=== PATIENT | male | born 1975 | race Caucasian/White ===

== ENCOUNTER 2016-05-03 10:33 | Emergency (ER) | payer OTHER ==
[~2016-05-03] VITALS: Ht 182.9 cm; Wt 90.7 kg
[2016-05-03] MEDS ORDERED: VYVANSE60 M1 PO (12:47)
[2016-05-03 12:52] VITALS: BP 145/78
[2016-05-03] MEDS ORDERED: KEFLEX500 M1 PO (12:56)
--- NOTE | 2016-05-03 12:57 | ED HEAD/FACIAL INJ COMPLAINT ---
History of Present Illness General Chief Complaint: Laceration Procedure Stated Complaint: FALL LIP LAC Source: patient Exam Limitations: no limitations Vital Signs & Intake/Output Vital Signs & Intake/Output Vital Signs Date Time Temp Pulse Resp B/P Pulse O2 O2 Flow FiO2 Ox Delivery Rate 05/03 1252 98.6 88 18 145/78 98 Room Air 05/03 1246 Room Air 05/03 1107 98.4 84 18 133/80 100 Room Air Allergies Coded Allergies: No Known Drug Allergies (05/03/16) Uncoded Allergies: Allergy Other N Med Allergies N Reconcile Medications Cephalexin (Keflex) 500 MG CAPSULE 1 CAP PO BID infection Lisdexamfetamine Dimesylate (Vyvanse) 60 MG CAPSULE 1 CAP PO QAM ADHD ( Reported) Triage Note: FELL WHILE WALKING DOG, HIT FACE ON SIDEWALK, HAS 3-4 CM LACERATION TO TOP OF LIP. NO LOC. TETANUS UP TO DAIE. Triage Nurses Notes Reviewed? yes HPI: 41-year-old male fell forward out walking his dog after his dog pulled him, thought to the sidewalk and struck his face and left side of his face, has abrasions to the left side of the face, mild tenderness and pain to the left lateral cheek region and a laceration noted to the upper lip area. There is no loss of consciousness, no nausea vomiting or confusion no headaches. No treatment thus far. Mild active bleeding was controlled with direct pressure. Injury occurred prior to arrival. (MICHAEL RAMON) Past History Travel History Traveled to [place] past 21 day No Medical History Any Pertinent Medical History? see below for history Neurological: NONE EENT: NONE Cardiovascular: NONE Respiratory: NONE Gastrointestinal: NONE Hepatic: NONE Renal: NONE Musculoskeletal: NONE Psychiatric: NONE, ADHD Cancer(s): NONE Tetanus Status: up to date Surgical History Surgical History: non-contributory Psychosocial History What is your primary language Polish Tobacco Use: Current Daily Use Daily Tobacco Use Amount/Type: => 5 Cigarettes daily ETOH Use: occasional use Family History Hx Contributory? No (MICHAEL RAMON) Review of Systems Review of Systems Constitutional: Reports: see HPI. EENTM: Reports: no symptoms. Respiratory: Reports: no symptoms. Cardiovascular: Reports: no symptoms. GI: Reports: no symptoms. Genitourinary: Reports: no symptoms. Musculoskeletal: Reports: no symptoms. Skin: Reports: no symptoms. Neurological/Psychological: Reports: no symptoms. Hematologic/Endocrine: Reports: no symptoms. Immunologic/Allergic: Reports: no symptoms. All Other Systems: Reviewed and Negative (MICHAEL RAMON) Physical Exam Physical Exam General Appearance: well developed/nourished, mild distress Eyes: Bilateral: PERRL, EOMI. Ears, Nose, Throat: normal pharynx, normal ENT inspection, hearing grossly normal Neck: normal inspection, supple Respiratory: normal breath sounds Cardiovascular: regular rate/rhythm Gastrointestinal: soft, non-tender Back: normal inspection Extremities: normal inspection, normal range of motion, no edema Psychiatric: awake, alert, oriented x 3 Cranial Nerves: normal hearing, normal speech, PERRL Coordination/Gait: normal gait Motor/Sensory: no motor/sensory deficits Skin: intact, normal color, warm/dry Lymphatic: no anterior cervical dianna Comments: There is mild tenderness to lateral zygomatic region with minimal swelling and no ecchymosis, mild abrasion noted to left side of the forehead left lateral zygomatic region/cheek region. Patient has a 2.5 cm V-shaped flap type laceration to the face, above the upper lip just underneath the left nares. Subcutaneous tissue is exposed. There is mild to moderate swelling to the upper lip. Upper lip Inner surface there is a small superficial abrasion of the lip caused by teeth. Diagram Head: 1) Laceration site Perry Coma Score Perry Coma Score Response Value Best Eye Response (Sri): open spontaneously 4 Best Verbal Response: oriented 5 Best Motor Response: obeys commands 6 Total 15 (MICHAEL RAMON) Progress Differential Diagnosis: corneal abrasion, c-spine injury, facial fracture, globe injury, ICH, orbit fracture, skull fracture Plan of Care: After verbal consent was obtained the laceration area was anesthetized with lidocaine 2% lidocaine with epinephrine 2 mL The patient's bower was trimmed It was prepped and draped in a sterile fashion with Betadine. The wound was copiously irrigated with normal saline. The wound was inspected and no foreign bodies or tendon lacerations were noted on exam and there is no functional deficit. There is no arterial bleeding. 5 -0 nylon simple interrupted sutures were placed 4 Sutures in total. Bacitracin and sterile dressing was applied. Distally the neurovascular status was intact postprocedure. The patient tolerated the procedure well without complications. Infection and risk of foreign body or tendon laceration was discussed with patient. Follow-up instructions and wound care was discussed. He was placed on antibiotics for prophylaxis of infection (MICHAEL RAMON) Departure Departure Disposition: HOME OR SELF CARE Condition: Stable Clinical Impression Primary Impression: Facial laceration Qualifiers: Encounter type: initial encounter Qualified Code: S01.81XA - Laceration without foreign body of other part of head, initial encounter Secondary Impressions: Facial contusion Qualifiers: Encounter type: initial encounter Qualified Code: S00.83XA - Contusion of other part of head, initial encounter Referrals: SILVERIO MCCANN MD (PCP/Family) Additional Instructions: Follow-up in 7-10 days either with your doctor or return to the emergency room for wound check and removal of sutures/ana Watch for signs of infection: Redness, swelling, pain, fever, discharge The possibility of a foreign body exists. Please watch for signs of infection and return with any concerns Take antibiotics for prevention of infection Departure Forms: Customer Survey General Discharge Information Prescriptions: Current Visit Scripts Cephalexin (Keflex) 1 CAP PO BID #10 CAP (MICHAEL RAMON) PA/TELEMETRY TECH Co-Sign Statement Statement: ED Attending supervision documentation- [] I saw and evaluated the patient. I have also reviewed all the pertinent lab results and diagnostic results. I agree with the findings and the plan of care as documented in the PA's/TELEMETRY TECH's documentation. x I have reviewed the ED Record and agree with the PA's/TELEMETRY TECH's documentation. [] Additions or exceptions (if any) to the PAs/TELEMETRY TECH's note and plan are summarized below: [] (SALVADOR KUHN,EN)
== END 2016-05-03 13:06 ==
LOC: ERH 10:33
DX: S01.81XA Laceration without foreign body of other part of head, initial encounter (principal); S00.83XA Contusion of other part of head, initial encounter; W19.XXXA Unspecified fall, initial encounter; Y93.K1 Activity, walking an animal

== ENCOUNTER 2016-05-15 11:38 | Emergency (ER) | payer OTHER ==
[~2016-05-15] VITALS: Ht 185.4 cm; Wt 90.7 kg
[~2016-05-15 11:38] MED LIST: KEFLEX500 M1 PO; VYVANSE60 M1 PO
[2016-05-15 12:10] VITALS: BP 143/83
--- NOTE | 2016-05-15 12:52 | ED SKIN/ALLERGY COMPLAINT ---
History of Present Illness General Chief Complaint: Suture Removal/Wound Recheck Stated Complaint: SUTURE REMOVAL Source: patient Exam Limitations: no limitations Vital Signs & Intake/Output Vital Signs & Intake/Output Vital Signs Date Time Temp Pulse Resp B/P Pulse O2 O2 Flow FiO2 Ox Delivery Rate 05/15 1210 99.6 84 18 143/83 98 Allergies Coded Allergies: No Known Drug Allergies (05/03/16) Uncoded Allergies: Allergy Other N Med Allergies N Reconcile Medications Cephalexin (Keflex) 500 MG CAPSULE 1 CAP PO BID infection Lisdexamfetamine Dimesylate (Vyvanse) 60 MG CAPSULE 1 CAP PO QAM ADHD ( Reported) Triage Note: HERE FOR SUTURE REMOVAL TO UPPER LIP, (4). PLACED 10 DAYS AGO. Triage Nurses Notes Reviewed? yes HPI: This patient is a 41-year-old male who presented to the emergency department today for suture removal. He had 4 sutures placed to his upper lip after he fell when his dog pulled him on the leash. The patient denied any fevers or chills. He denied any drainage or signs of infection at the wound site. He denied any pain. (MONE FRY PA-C) Past History Travel History Traveled to [place] past 21 day No Medical History Any Pertinent Medical History? see below for history Neurological: NONE EENT: NONE Cardiovascular: NONE Respiratory: NONE Gastrointestinal: NONE Hepatic: NONE Renal: NONE Musculoskeletal: NONE Psychiatric: NONE, ADHD Cancer(s): NONE Surgical History Surgical History: non-contributory Psychosocial History What is your primary language Ug[place]an Tobacco Use: Never used ETOH Use: denies use Family History Hx Contributory? No (MONE FRY PA-C) Review of Systems Review of Systems Constitutional: Reports: no symptoms. EENTM: Reports: no symptoms. Respiratory: Reports: no symptoms. Cardiovascular: Reports: no symptoms. GI: Reports: no symptoms. Musculoskeletal: Reports: no symptoms. Skin: Reports: see HPI. All Other Systems: Reviewed and Negative (MONE FRY PA-C) Physical Exam Physical Exam General Appearance: well developed/nourished, no apparent distress, alert, awake Comments: Well-developed well-nourished person in no acute distress HEENT: Head normocephalic, moist mucous membranes Neck: Supple, no lymphadenopathy Back: Normal gait Respiratory: No respiratory distress. Speaking in full sentences Extremities: No edema, full range of motion Neuro: Alert and oriented x3 Psych: Mood affect normal, normal memory normal judgment. Skin: Warm and dry, no rash on exposed skin. Healing laceration to the left aspect of the upper lip with [address] No stranding erythema or edema. No purulent drainage. Nontender to palpation (MONE FRY PA-C) Progress Differential Diagnosis: abscess/cellulitis, LACERATION, SUTURE REMOVAL Plan of Care: This patient is a 41-year-old male who presented to the emergency department today for suture removal. The patient has been experiencing no signs of infection. 4 sutures were removed by myself. Patient tolerated the procedure well. Stable for discharge home. (MONE FRY PA-C) Departure Departure Disposition: HOME OR SELF CARE Condition: Stable Clinical Impression Primary Impression: Visit for suture removal Referrals: RAMY KUHN,SILVERIO Hanks (PCP/Family) Additional Instructions: Please continue to keep the wound site clean and dry. Follow-up with your primary care physician. Return for any worsening symptoms or signs of infection. Departure Forms: Customer Survey General Discharge Information (MONE FRY PA-C) PA/BRICK HANDLER Co-Sign Statement Statement: ED Attending supervision documentation- [] I saw and evaluated the patient. I have also reviewed all the pertinent lab results and diagnostic results. I agree with the findings and the plan of care as documented in the PA's/BRICK HANDLER's documentation. [X] I have reviewed the ED Record and agree with the PA's/BRICK HANDLER's documentation. [] Additions or exceptions (if any) to the PAs/BRICK HANDLER's note and plan are summarized below: [] (MARIMAR KUHN,KLARISSA)
== END 2016-05-15 12:55 ==
LOC: ERH 11:38
DX: S01.511A Laceration without foreign body of lip, initial encounter (principal); X58.XXXA Exposure to other specified factors, initial encounter; Y93.K1 Activity, walking an animal
CPT/HCPCS: 99281